=== PATIENT | female | born 1960 | race Caucasian/White ===

== ENCOUNTER 2018-04-14 08:18 | Emergency (ER) | payer OTHER, BC ==
[~2018-04-14] VITALS: Ht 175.3 cm; Wt 96.6 kg
[~2018-04-14 08:18] MED LIST: ASPI81CH PO; ATOM40 PO; ATOR10 PO; CALCAVITDA PO; CYCL10 PO; IBUP200; MELO7.5 PO; PROACE100 PO; Percocet 5-3251 EACH PO; RXCODACET PO; TRAM50 PO
[2018-04-14] MEDS ORDERED: Metformin HCl500 MG PO (08:35)
== END 2018-04-14 09:34 | disposition home or self-care (01) ==
LOC: ER 08:18
DX: S70.02XA Contusion of left hip, initial encounter (principal); M25.512 Pain in left shoulder; W19.XXXA Unspecified fall, initial encounter; Y99.0 Civilian activity done for income or pay; E11.9 Type 2 diabetes mellitus without complications; Z91.011 Allergy to milk products; Z88.2 Allergy status to sulfonamides; Z88.5 Allergy status to narcotic agent; Z88.1 Allergy status to other antibiotic agents; Z79.84 Long term (current) use of oral hypoglycemic drugs; Z79.899 Other long term (current) drug therapy
CPT/HCPCS: 73030; 73502; 99283

== ENCOUNTER → 2018-12-04 | Outpatient (CLI) | payer OTHER, BC ==
[~2018-12-04] MED LIST changes: +Metformin HCl500 MG PO
== END ==
LOC: LAB EV 17:08 → LAB SHORT 17:08
DX: N39.0 Urinary tract infection, site not specified (principal)
CPT/HCPCS: 87086

== ENCOUNTER → 2018-12-17 | Outpatient (CLI) | payer BC ==
[2018-12-18 14:43] LABS: Candida species (DNA Probe) Negative (NEGATIVE); G. vaginalis (DNA Probe) Positive (NEGATIVE); T. vaginalis (DNA Probe) Negative (NEGATIVE)
[2018-12-22 06:11] LABS: CHLAMYDIA BY NAA Negative (Negative); GONOCOCCUS BY NAA Negative (Negative); TRICH VAG BY NAA Negative (Negative)
== END | disposition home or self-care (01) ==
LOC: LAB SHORT 19:09 → LAB EV 19:09
PROVIDERS: Physician Assistant
DX: R10.2 Pelvic and perineal pain (principal)
CPT/HCPCS: 87480; 87491; 87510; 87591; 87660; 87661

== ENCOUNTER 2021-10-11 06:09 | Day surgery (SDC) | payer BC ==
[~2021-10-11] VITALS: Ht 175.3 cm; Wt 97.7 kg
[~2021-10-11 06:09] MED LIST changes: +METF500C PO; -Metformin HCl500 MG PO
[2021-10-11] MEDS ORDERED: AZELASTINE137 MCG/06 (07:00)
[2021-10-11] MEDS ORDERED: ATOMOXETINE HCL18 MG PO (07:00)
[2021-10-11] MEDS ORDERED: ZINC15 PO (07:01)
[2021-10-11] MEDS ORDERED: Vitamin B Comple1 EA PO (07:01)
[2021-10-11] MEDS ORDERED: FISH OIL 1,2001 EAC1 PO (07:01)
[2021-10-11] MEDS ORDERED: ASPI81CH PO (07:01)
[2021-10-11] MEDS ORDERED: Garlic500 MG PO (07:02)
--- NOTE | 2021-10-11 07:56 | NUR ---
10/11/21 0756 Ramiro Rooney 0.25MG EPI ADDED TO 50ML'S 0.5% MARCAINE TO ACHIEVE SOLUTION OF 0.5% MARCAINE WITH EPI 1:200,000. DR ALEGRIA NOTIFIED OF PT HAVING RING WORM ON LEFT ANKLE. PER KRISTI JIMENEZ TO PROCEDE WITH PROCEDURE.
== END 2021-10-11 09:19 | disposition home or self-care (01) ==
LOC: ORSCSDS 06:09
PROVIDERS: Orthopaedic Surgery
PROC: 0SBD4ZZ Excision of Left Knee Joint, Percutaneous Endoscopic Approach (ICD-10-PCS; principal; 2021-10-11 07:30)
DX: S83.242A Other tear of medial meniscus, current injury, left knee, initial encounter (principal); M94.262 Chondromalacia, left knee; E11.9 Type 2 diabetes mellitus without complications; E78.5 Hyperlipidemia, unspecified; Z79.84 Long term (current) use of oral hypoglycemic drugs; Z79.899 Other long term (current) drug therapy
CPT/HCPCS: 82947; J0171; J0690; J1100; J2250; J2405; J2704; J3010; J7120

== ENCOUNTER → 2023-09-03 | Outpatient (CLI) | payer BC ==
[~2023-09-03] MED LIST changes: +ATOMOXETINE HCL18 MG PO; +AZELASTINE137 MCG/06; +CHOLESTYRAMI239.4 G1; +FISH OIL 1,2001 EAC1 PO; +Garlic500 MG PO; +LOPE2C; +PIOG15; +Vitamin B Comple1 EA PO; +ZINC15 PO
== END | disposition home or self-care (01) ==
LOC: LAB 09:55 → LAB SHORT 09:55
DX: N30.00 Acute cystitis without hematuria (principal)
CPT/HCPCS: 87077; 87086; 87186

== ENCOUNTER 2023-09-11 16:42 | Emergency (ER) | payer BC ==
[~2023-09-11] VITALS: Ht 175.3 cm; Wt 84.4 kg
[2023-09-11 17:53] LABS: BASOPHILS ABSOLUTE AUTO 0.07 K/mm3 (0.00-0.23); BASOPHILS PERCENT AUTO 1 % (0-2); EOSINOPHILS ABSOLUTE AUTO 0.02 K/mm3 (0.00-0.68); EOSINOPHILS PERCENT AUTO 0 % (0-6); Hematocrit 37.4 % (33.0-51.0); Hemoglobin 12.1 g/dL (11.5-16.0); IMMATURE GRAN ABSOLUTE AUTO 0.14 K/mm3 (0.00-0.10); IMMATURE GRAN PERCENT AUTO 1 % (0-1); LYMPHOCYTES ABSOLUTE AUTO 1.42 K/mm3 (0.84-5.20); LYMPHOCYTES PERCENT AUTO 10 % (21-46); MONOCYTES ABSOLUTE AUTO 1.32 K/mm3 (0.16-1.47); MONOCYTES PERCENT AUTO 10 % (4-13); Mean Corpuscular HGB 27.2 pg (26.0-34.0); Mean Corpuscular HGB Conc 32.4 g/dL (31.5-36.5); Mean Corpuscular Volume 84 fL (80-100); Mean Platelet Volume 9.9 fL (9.1-12.4); NEUTROPHILS PERCENT AUTO 78 % (41-73); Platelet Count 355 K/mm3 (150-400); RDW Coefficient Variation 14.5 % (11.7-14.2); RDW Standard Deviation 44.8 fL (35.1-46.3); Red Blood Cell Count 4.45 M/mm3 (3.80-5.20); White Blood Cell Count 13.67 K/mm3 (4.00-11.30)
[2023-09-11 18:18] LABS: Albumin, Blood 2.1 g/dL (3.4-5.0); Albumin/Globulin Ratio 0.4 (0.8-1.8); Bilirubin, Total 1.1 mg/dL (0.1-1.0); Calcium, Blood 8.5 mg/dL (8.5-10.1); Creatinine, Blood 0.5 mg/dL (0.40-1.00); Globulin, Blood 5.3 g/dL (2.2-4.0); Phosphorus, Blood 3.7 mg/dL (2.5-4.9); Potassium, Blood 4.6 mmol/L (3.5-5.5); Total Protein, Blood 7.4 g/dL (6.4-8.2)
[2023-09-11 21:00] VITALS: BP 129/73
[2023-09-11] MEDS ORDERED: ONDA4 (21:50)
[2023-09-11 22:16] LABS: Anion Gap Unable to Calculate mmol/L (6-16); Bun/Creatinine Ratio Unable to Calculate (12.0-20.0)
[2023-09-11 22:19] LABS: Bun/Creatinine Ratio 21.4 (12.0-20.0); Calcium, Blood 8.1 mg/dL (8.5-10.1); Creatinine, Blood 0.56 mg/dL (0.40-1.00); Potassium, Blood 4.3 mmol/L (3.5-5.5)
== END 2023-09-11 22:05 | disposition short-term general hospital (02) ==
LOC: ER 16:42
PROVIDERS: Physician Assistant; Student in an Organized Health Care Education/Training Program
DX: K56.600 Partial intestinal obstruction, unspecified as to cause (principal); N73.9 Female pelvic inflammatory disease, unspecified; A41.9 Sepsis, unspecified organism; E11.9 Type 2 diabetes mellitus without complications; F17.210 Nicotine dependence, cigarettes, uncomplicated; Z79.899 Other long term (current) drug therapy; Z88.2 Allergy status to sulfonamides; Z88.5 Allergy status to narcotic agent; Z88.7 Allergy status to serum and vaccine; Z88.8 Allergy status to other drugs, medicaments and biological substances; Z91.011 Allergy to milk products; Z93.2 Ileostomy status; Z90.49 Acquired absence of other specified parts of digestive tract
CPT/HCPCS: 80048; 80053; 83605; 83735; 83930; 84100; 85025; 96365; 96375; 96376; 99285-25; J1170; J2060; J2405; J2543; J7030

== ENCOUNTER → 2024-10-20 | Outpatient (CLI) | payer BC ==
[~2024-10-20] MED LIST changes: +ONDA4
[2024-10-23 10:19] LABS: CORTISOL,U FREE - RATIO TO CRT 17.66 ug/g CRT; CORTISOL,URINE FREE - PER 24H 21.6 ug/d (<=45.0); CREATININE,URINE - PER 24H 1221 mg/d (500-1400); CREATININE,URINE - PER VOLUME 111 mg/dL; HOURS COLLECTED 24 hr; TOTAL VOLUME 1100 mL
== END ==
LOC: LAB 09:32 → LAB SHORT 09:32
PROVIDERS: Nurse Practitioner Family
DX: R60.1 Generalized edema (principal); R06.02 Shortness of breath
CPT/HCPCS: 81050; 82530

== ENCOUNTER 2025-01-13 17:52 | Emergency (ER) | payer OTHER, BC ==
[~2025-01-13] VITALS: Ht 175.3 cm; Wt 115.7 kg
[2025-01-13 19:30] VITALS: BP 104/86
[2025-01-13] MEDS ORDERED: Ibuprofen 600 MG Tab PO ONE (20:40)
== END 2025-01-13 21:44 | disposition home or self-care (01) ==
LOC: ER 17:52
DX: S80.02XA Contusion of left knee, initial encounter (principal); S80.01XA Contusion of right knee, initial encounter; S73.101A Unspecified sprain of right hip, initial encounter; M17.0 Bilateral primary osteoarthritis of knee; M16.11 Unilateral primary osteoarthritis, right hip; S80.211A Abrasion, right knee, initial encounter; E11.9 Type 2 diabetes mellitus without complications; E78.5 Hyperlipidemia, unspecified; M06.9 Rheumatoid arthritis, unspecified; Z88.2 Allergy status to sulfonamides; Z88.5 Allergy status to narcotic agent; Z88.7 Allergy status to serum and vaccine; Z79.899 Other long term (current) drug therapy; W01.0XXA Fall on same level from slipping, tripping and stumbling without subsequent striking against object, initial encounter
CPT/HCPCS: 73502; 73562-LT; 73562-RT; 99283-25; A9270